=== PATIENT | female | born 1955 | race Caucasian/White ===

== ENCOUNTER → 2017-02-11 | Outpatient (CLI) | payer MEDICAID | LOC: RAD 14:57 | PROVIDERS: ATTEND Internal Medicine Geriatric Medicine | DX: R91.8 Other nonspecific abnormal finding of lung field (principal) | CPT/HCPCS: 71250 ==

== ENCOUNTER → 2017-03-17 | Outpatient (CLI) | payer MEDICAID ==
[2017-03-17 13:01] LABS: ABSOLUTE EOSINOPHILS # (AUTO) 0.1 10^3/uL (0.0-0.6); ABSOLUTE LYMPHOCYTES (AUTO) 1.8 10^3/uL (0.5-4.7); ABSOLUTE MONOCYTES (AUTO) 0.6 10^3/uL (0.1-1.4); ABSOLUTE NEUT (AUTO) 3.4 10^3/uL (1.7-8.2); BASOPHILS % (AUTO) 0.6 % (0-2); EOSINOPHILS % (AUTO) 1.6 % (0-6); HEMATOCRIT 36.2 % (36.0-47.0); HEMOGLOBIN 12.2 g/dL (12.0-15.5); HGB HCT DIFFERENCE 0.4; LYMPHOCYTES % (AUTO) 30.6 % (13-45); MEAN CORPUSCULAR HEMOGLOBIN 33.4 pg (27.0-33.4); MEAN CORPUSCULAR HGB CONC 33.8 g/dL (32.0-36.0); MEAN CORPUSCULAR VOLUME 99 fl (80-97); RED BLOOD COUNT 3.66 10^6/uL (3.72-5.28); RED CELL DISTRIBUTION WIDTH 13.3 % (11.5-14.0); SEGMENTED NEUTROPHILS % (AUTO) 57.2 % (42-78)
--- NOTE | 2017-03-17 13:05 | RADIOLOGY REPORT (SQ) ---
EXAM DESCRIPTION: CHEST PA/LATERAL COMPLETED DATE/TIME: 03/17/2017 12:45 pm REASON FOR STUDY: PRE OP COMPARISON: None. EXAM PARAMETERS: NUMBER OF VIEWS: two views TECHNIQUE: Digital Frontal and Lateral radiographic views of the chest acquired. RADIATION DOSE: NA LIMITATIONS: none FINDINGS: LUNGS AND PLEURA: No opacities, masses or pneumothorax. No pleural effusion. MEDIASTINUM AND HILAR STRUCTURES: No masses or contour abnormalities. HEART AND VASCULAR STRUCTURES: Heart normal size. No evidence for failure. BONES: No acute findings. HARDWARE: None in the chest. OTHER: No other significant finding. IMPRESSION: NO SIGNIFICANT RADIOGRAPHIC FINDING IN THE CHEST. TECHNICAL DOCUMENTATION: JOB ID: [id number] [employer]- All Rights Reserved
[2017-03-17 13:27] LABS: BLOOD UREA NITROGEN 11 mg/dL (7-20); CALCIUM 8.9 mg/dL (8.4-10.2); CREATININE RESULT 0.62 mg/dL (0.52-1.25); GLUCOSE 85 mg/dL (75-110)
[2017-03-17 13:28] LABS: ANION GAP 9 (5-19); CARBON DIOXIDE 24 mmol/L (22-30); CHLORIDE 94 mmol/L (98-107); POTASSIUM 4.8 mmol/L (3.6-5.0)
--- NOTE | 2017-03-18 11:03 | EKG REPORT ---
SEVERITY:- NORMAL ECG - SINUS RHYTHM : Confirmed by: Sophia Gonzalez MD 18-Mar-2017 11:02:41
[2017-03-18 15:42] LABS: APPEARANCE,URINE SLIGHTLY-CLOUDY; BILIRUBIN,URINE NEGATIVE (NEGATIVE); GLUCOSE, URINE NEGATIVE (NEGATIVE); KETONES,URINE NEGATIVE (NEGATIVE); LEUKOCYTE ESTERASE,URINE TRACE (NEGATIVE); NITRITE,URINE POSITIVE (NEGATIVE); PROTEIN,URINE NEGATIVE (NEGATIVE); URINE SPECIFIC GRAVITY 1.009
== END ==
LOC: OD 11:40
PROVIDERS: ATTEND Orthopaedic Surgery
DX: Z01.818 Encounter for other preprocedural examination (principal)
CPT/HCPCS: 36415; 71020; 80048; 81001; 85025; 93005; 93010

== ENCOUNTER 2017-04-18 06:19 | Day surgery (SDC) | payer MEDICAID ==
[2017-04-07 12:33] LABS: HEMATOCRIT 38.3 % (36.0-47.0); HEMOGLOBIN 12.9 g/dL (12.0-15.5); HGB HCT DIFFERENCE 0.4; MEAN CORPUSCULAR HEMOGLOBIN 33.3 pg (27.0-33.4); MEAN CORPUSCULAR HGB CONC 33.8 g/dL (32.0-36.0); MEAN CORPUSCULAR VOLUME 99 fl (80-97); RED BLOOD COUNT 3.89 10^6/uL (3.72-5.28); RED CELL DISTRIBUTION WIDTH 13.4 % (11.5-14.0); WHITE BLOOD COUNT 8.4 10^3/uL (4.0-10.5)
[2017-04-07 12:43] LABS: APPEARANCE,URINE SLIGHTLY-CLOUDY; BILIRUBIN,URINE NEGATIVE (NEGATIVE); GLUCOSE, URINE NEGATIVE (NEGATIVE); KETONES,URINE TRACE mg/dL (NEGATIVE); LEUKOCYTE ESTERASE,URINE TRACE (NEGATIVE); NITRITE,URINE NEGATIVE (NEGATIVE); PROTEIN,URINE NEGATIVE (NEGATIVE); URINE SPECIFIC GRAVITY 1.008; UROBILINOGEN,URINE NEGATIVE mg/dL (<2.0)
[2017-04-07 12:56] LABS: ANION GAP 11 (5-19); BLOOD UREA NITROGEN 11 mg/dL (7-20); CALCIUM 8.5 mg/dL (8.4-10.2); CARBON DIOXIDE 22 mmol/L (22-30); CHLORIDE 97 mmol/L (98-107); CREATININE RESULT 0.61 mg/dL (0.52-1.25); GLUCOSE 77 mg/dL (75-110); POTASSIUM 3.9 mmol/L (3.6-5.0); SODIUM 129.9 mmol/L (137-145)
[2017-04-15 15:08] VITALS: BP 108/57
[~2017-04-18 06:19] MED LIST: BUPIVACAINE INJ/PF LIPOSOME/PF 266 MG/20 ML SDV IJ PRN; CLINDAMYCIN 600 MG/D5W RTU 600 MG/50 ML RTUPB IV PRN; IBUPROFEN 800 MG in NORMAL SALINE 250 ML IV PRN; IBUPROFEN 800 MG/NS 250 ML IV PRN; LACTATED RINGERS 1000 ML IV PRN; LANSOPRAZOLE 15 MG TAB.RAP.DR PO PRN; LIDOCAINE 0.5% INJ-PF (5 MG/ML) 50 ML SDV SUBCUT PRN; OXYCODONE HCL SR 10 MG TABLET PO PRN; SCOPOLAMINE HYDROBROMIDE 1.5 MG PATCH.TD72 TOP PRN; VANCOMYCIN HCL 1,000 MG in DEXTROSE 5%-WATER 250 ML IV PRN
[2017-04-18] MEDS ORDERED: PROPOFOL INJ 200 MG/20 ML VIAL IV ONE (07:02)
[2017-04-18] MEDS ORDERED: MIDAZOLAM 2 MG/2 ML INJ ONE (07:02)
[2017-04-18] MEDS ORDERED: TRANEXAMIC ACID INJ/PF 1,000 MG/10 ML SDV IV ONE (07:02)
[2017-04-18] MEDS ORDERED: FENTANYL CITRATE INJ/PF 100 MCG/2 ML AMPUL ONE (07:02)
[2017-04-18] MEDS ORDERED: DEXAMETHASONE SOD PHOSPHATE INJ 4 MG/1 ML VIAL ONE (07:03)
[2017-04-18] MEDS ORDERED: ONDANSETRON HCL INJ/PF 4 MG/2 ML SDV ONE (07:03)
[2017-04-18] MEDS ORDERED: VANCOMYCIN HCL INJ 1000 MG VIAL ONE (07:29)
[2017-04-18] MEDS ORDERED: THROMBIN (BOVINE) TOPICAL 20000 UNIT VIAL ONE (07:30)
[2017-04-18] MEDS ORDERED: BUPIVACAINE INJ/PF LIPOSOME/PF 266 MG/20 ML SDV ONE (07:30)
[2017-04-18] MEDS ORDERED: THROMBIN (BOVINE) 5000 UNIT EPITAXIS KIT ONE (07:30)
[2017-04-18] MEDS ORDERED: ALBUTEROL SULFATE 0.083% NEB 2.5 MG/3 ML AMPUL NEB ONE (07:59)
== END 2017-04-18 07:10 | disposition other institution (70) ==
LOC: UNDOADMIN 06:19 → INOR 06:19 → OROUT 06:19 → UNDODISIN 07:10 → EDSTATUS 11:15
PROVIDERS: ATTEND Orthopaedic Surgery
DX: Z01.818 Encounter for other preprocedural examination (principal); M17.12 Unilateral primary osteoarthritis, left knee
CPT/HCPCS: 36415 ×2; 82962; 84132; 84295; 85027; 80048; 81001; J3490 ×4; J7060; J7050; J3370; C9290; J1741; J1100; J2250; J2405; J2704; J3010

== ENCOUNTER 2017-04-20 11:07 | Observation (INO) | payer MEDICAID ==
[2017-04-20 14:22] LABS: ABSOLUTE LYMPHOCYTES (AUTO) 1.4 10^3/uL (0.5-4.7); ABSOLUTE MONOCYTES (AUTO) 0.4 10^3/uL (0.1-1.4); ABSOLUTE NEUT (AUTO) 3.6 10^3/uL (1.7-8.2); BASOPHILS % (AUTO) 0.5 % (0-2); EOSINOPHILS % (AUTO) 0.6 % (0-6); HEMATOCRIT 36.1 % (36.0-47.0); HEMOGLOBIN 12.3 g/dL (12.0-15.5); HGB HCT DIFFERENCE 0.8; LYMPHOCYTES % (AUTO) 25.8 % (13-45); MEAN CORPUSCULAR HEMOGLOBIN 33.3 pg (27.0-33.4); MEAN CORPUSCULAR VOLUME 98 fl (80-97); MONOCYTES % (AUTO) 7.9 % (3-13); RED BLOOD COUNT 3.68 10^6/uL (3.72-5.28); RED CELL DISTRIBUTION WIDTH 13.1 % (11.5-14.0); SEGMENTED NEUTROPHILS % (AUTO) 65.2 % (42-78); WHITE BLOOD COUNT 5.5 10^3/uL (4.0-10.5)
[2017-04-20] MEDS: SODIUM CHLORIDE 1 GM TABLET PO SCH ×3 (14:27→21:20)
[2017-04-20 14:31] LABS: ALANINE AMINOTRANSFERASE 31 U/L (9-52); ALKALINE PHOSPHATASE 107 U/L (38-126); ANION GAP 8 (5-19); ASPARTATE AMINO TRANSFERASE 16 U/L (14-36); BILIRUBIN,DIRECT 0.7 mg/dL (0.0-0.4); BLOOD UREA NITROGEN 6 mg/dL (7-20); CALCIUM 8.2 mg/dL (8.4-10.2); CARBON DIOXIDE 23 mmol/L (22-30); CHLORIDE 100 mmol/L (98-107); CREATININE RESULT 0.56 mg/dL (0.52-1.25); GLUCOSE 127 mg/dL (75-110); SODIUM 130.9 mmol/L (137-145); TOTAL PROTEIN 5.6 g/dL (6.3-8.2)
[2017-04-20] MEDS ORDERED: ACETAMINOPHEN PO PRN (15:08)
[2017-04-20] MEDS ORDERED: ONDANSETRON 4 MG TAB.RAPDIS PO PRN (15:08)
[2017-04-20] MEDS ORDERED: [UNRECOGNIZED DRUG - OTHER] PO PRN (15:08)
[2017-04-20] MEDS ORDERED: BUTALB PO PRN (15:08)
[2017-04-20] MEDS ORDERED: FUROSEMIDE 40 MG TABLET PO PRN (15:08)
[2017-04-20] MEDS ORDERED: BUTALB/ACETAMINOPHEN/CAFFEINE 1 TAB EACH PO PRN (15:20)
[2017-04-20] MEDS: TRAMADOL HCL 50 MG TABLET PO PRN (15:33)
[2017-04-20 16:11] LABS: APPEARANCE,URINE CLEAR; BILIRUBIN,URINE NEGATIVE (NEGATIVE); GLUCOSE, URINE NEGATIVE (NEGATIVE); KETONES,URINE 20 mg/dL (NEGATIVE); LEUKOCYTE ESTERASE,URINE NEGATIVE (NEGATIVE); NITRITE,URINE NEGATIVE (NEGATIVE); PROTEIN,URINE NEGATIVE (NEGATIVE); URINE SPECIFIC GRAVITY 1.011; UROBILINOGEN,URINE NEGATIVE mg/dL (<2.0)
[2017-04-20 16:32] LABS: URINE CREATININE 51.7 mg/dL (15-278)
[2017-04-20] MEDS: OXYBUTYNIN CHLORIDE 5 MG TABLET PO SCH (17:52)
[2017-04-20] MEDS: FLUTICASONE NASAL SPRAY 50 MCG/SPRY 120 SPRAY/16 GM NASL SCH (17:53)
[2017-04-20] MEDS: FAMOTIDINE 20 MG TABLET PO SCH (17:53)
--- NOTE | 2017-04-20 18:20 | PDOC H&P ---
History of Present Illness Admission Date/PCP: 04/20/17 11:07 [facility] Patient complains of: Low serum sodium, intermittent confusion and memory lapses History of Present Illness: CESAR THOMPSON is a 61 year old female known to my practice who was schedule for left knee arthroplasty that was cancelled due to significant hyponatremia on her operative day 04/18/17. Patient reported recent issue with memory lapses and confusion. She was recently started on Lexapro for mixed anxiety and depression management. She denied nausea, vomiting, or diarrhea. She claimed that she has liberalized salt intake for quite sometime. She take her diuretic, Lasix, about 2-3 times per month on prn bases. Her possible other medications include Carbamazepine and Pantoprazole. In view of her symptoms and reported serum sodium at 122.7 mmol/L on 04/18/17, she was advised admission to observation bed for further evaluation and management. Past Medical History Cardiac Medical History: Denies: Pulmonary Embolism Pulmonary Medical History: Reports: Asthma, Bronchitis, Chronic Obstructive Pulmonary Disease (COPD) - Chronic Obstructive Lung Disease Denies: Pneumonia, Respiratory Failure, Sleep Apnea, Tuberculosis Endocrine Medical History: Denies: Hyperthyroidism, Hypothyroidism Renal/ Medical History: Denies: End Stage Renal Disease Malignancy Medical History: Denies: Breast Cancer, Cervical Cancer, Leukemia, Lung Cancer, Ovarian Cancer GI Medical History: Reports: Gastroesophageal Reflux Disease Musculoskeltal Medical History: Reports: Arthritis, Fibromyalgia Psychiatric Medical History: Reports: Bipolar Disorder, Depression Denies: Post Traumatic Stress Disorder Hematology: Reports: Anemia - Pernicious Anemia Denies: Hemophilia, Sickle Cell Disease Infectious Medical History: Denies: HIV Past Surgical History Past Surgical History: Reports: Cholecystectomy, Gastric Bypass Surgery, Herniorrhaphy - with mesh, Hysterectomy, Tonsillectomy - T&A Denies: Amputation, Appendectomy, Section, Coronary Artery Bypass Graft, Mastectomy, Pacemaker, Tubal Ligation Social History Smoking Status: Current Every Day Smoker Cigarettes Packs Per Day: 1 Hx Recreational Drug Use: No Hx Prescription Drug Abuse: No Family History Parental Family History Reviewed: Yes Children Family History Reviewed: Yes Sibling(s) Family History Reviewed.: Yes Medication/Allergy Home Medications: Baclofen [Baclofen 10 mg Tablet] 10 mg PO Q8 04/20/17 Butalb/Acetaminophen/Caffeine [Xuvjdmwl-Uegaijrbhrype-Jdmq Cp] 1 cap PO Q4HP PRN 04/20/17 Carbamazepine [Tegretol 200 mg Tablet] 200 mg PO QAM 04/20/17 Carbamazepine [Tegretol 200 mg Tablet] 800 mg PO QHS 04/20/17 Clonazepam [Klonopin 1 mg Tablet] 0.5 mg PO Q8 04/20/17 Escitalopram Oxalate [Lexapro] 40 mg PO DAILY 04/20/17 Fluticasone Propionate [Flonase Nasal [place] 50 Mcg/[place] 16 gm] 1 spray NASL BID 04/20/17 Furosemide [Lasix] 40 mg PO DAILYP PRN 04/20/17 Mometasone Furoate [Asmanex] 2 puff IH DAILY 04/20/17 Montelukast Sodium [Singulair 10 mg Tablet] 10 mg PO DAILY 04/20/17 Ondansetron [Zofran Odt 4 mg Tablet] 4 mg PO TIDP PRN 04/20/17 Oxybutynin Chloride [Ditropan 5 mg Tablet] 5 mg PO TID 04/20/17 Pantoprazole Sodium [Protonix] 40 mg PO DAILY 04/20/17 Pregabalin [Lyrica 50 mg Capsule] 50 mg PO Q8 04/20/17 Tramadol HCl [Ultram 50 mg Tablet] 100 mg PO Q8HP PRN 04/20/17 Trazodone HCl [Desyrel 50 mg Tablet] 100 mg PO QHS 04/20/17 Allergies/Adverse Reactions: clarithromycin Allergy (Verified 04/06/17 16:29) Hives clopidogrel Allergy (Verified 04/06/17 16:29) Hives duloxetine Allergy (Verified 04/06/17 16:29) Hives morphine Allergy (Verified 04/06/17 16:29) Hives Penicillins Allergy (Verified 04/06/17 16:29) Hives procaine Allergy (Verified 04/06/17 16:29) Edema, Hives Rbdhohh-Jjn-Ffh Reductase Inhibitor Allergy (Verified 04/06/17 16:29) Hives Sulfa (Sulfonamide Antibiotics) Allergy (Verified 04/06/17 16:29) Hives Review of Systems Constitutional: ABSENT: chills, fever(s), headache(s), weight gain, weight loss Eyes: PRESENT: visual disturbances Ears: ABSENT: hearing changes Nose, Mouth, and Throat: ABSENT: as per HPI, headache(s), mouth pain, sore throat, vertigo, other Cardiovascular: ABSENT: chest pain, dyspnea on exertion, edema, orthropnea, palpitations Respiratory: ABSENT: cough, hemoptysis Gastrointestinal: ABSENT: abdominal pain, constipation, diarrhea, hematemesis, hematochezia, nausea, vomiting Genitourinary: ABSENT: dysuria, hematuria Musculoskeletal: PRESENT: deformity - related to joint involvement with arthritis. Integumentary: ABSENT: rash, wounds Neurological: ABSENT: abnormal gait, abnormal speech, confusion, dizziness, focal weakness, syncope Psychiatric: ABSENT: anxiety, depression, homidical ideation, suicidal ideation Endocrine: ABSENT: cold intolerance, heat intolerance, polydipsia, polyuria Hematologic/Lymphatic: ABSENT: easy bleeding, easy bruising, lymphadenopathy Allergic/Immunologic: PRESENT: seasonal rhinorrhea Physical Exam Vital Signs: Temp Pulse Resp BP Pulse Ox 98.0 F 101 H 16 114/68 95 04/20/17 15:52 04/20/17 15:52 04/20/17 15:52 04/20/17 15:52 04/20/17 15:52 Intake & Output 04/19/17 04/20/17 04/21/17 06:59 06:59 06:59 Weight 76.204 kg General appearance: PRESENT: no acute distress, well-developed, well-nourished Head exam: PRESENT: atraumatic, normocephalic Eye exam: PRESENT: conjunctiva pink, EOMI, PERRLA. ABSENT: scleral icterus Ear exam: PRESENT: normal external ear exam Mouth exam: PRESENT: moist, tongue midline Throat exam: ABSENT: post pharyngeal erythema, tonsillar erythema, tonsillar exudate, tonsillogmegaly, other Neck exam: PRESENT: full ROM. ABSENT: carotid bruit, JVD, lymphadenopathy, thyromegaly Respiratory exam: PRESENT: clear to auscultation claude Cardiovascular exam: PRESENT: RRR. ABSENT: diastolic murmur, rubs, systolic murmur GI/Abdominal exam: PRESENT: normal bowel sounds, soft. ABSENT: distended, guarding, mass, organolmegaly, rebound, tenderness Extremities exam: ABSENT: pedal edema Musculoskeletal exam: PRESENT: deformity - related to multiple joint involvement with arthritis Neurological exam: PRESENT: alert, awake, oriented to person, oriented to place , oriented to time, oriented to situation, CN II-XII grossly intact. ABSENT: motor sensory deficit Psychiatric exam: PRESENT: appropriate affect, normal mood. ABSENT: homicidal ideation, suicidal ideation Skin exam: PRESENT: dry, intact, warm. ABSENT: cyanosis, rash Results Laboratory Results: 04/20/17 14:00 04/20/17 14:00 04/20/17 04/20/17 04/20/17 14:00 14:00 14:00 WBC 5.5 RBC 3.68 L Hgb 12.3 Hct 36.1 MCV 98 H MCH 33.3 MCHC 34.0 RDW 13.1 Plt Count 308 Seg Neutrophils % 65.2 Lymphocytes % 25.8 Monocytes % 7.9 Eosinophils % 0.6 Basophils % 0.5 Absolute Neutrophils 3.6 Absolute Lymphocytes 1.4 Absolute Monocytes 0.4 Absolute Eosinophils 0.0 Absolute Basophils 0.0 Sodium 130.9 L Potassium 4.0 Chloride 100 Carbon Dioxide 23 Anion Gap 8 BUN 6 L Creatinine 0.56 Cancelled Est GFR ( Amer) > 60 Cancelled Est GFR (Non-Af Amer) > 60 Cancelled Glucose 127 H Calcium 8.2 L Total Bilirubin 1.0 AST 16 ALT 31 Alkaline Phosphatase 107 Total Protein 5.6 L Albumin 3.0 L Urine Color Urine Appearance Urine pH Ur Specific [place] Urine Protein Urine Glucose (UA) Urine Ketones Urine Blood Urine Nitrite Ur Leukocyte Esterase Urine WBC (Auto) Urine RBC (Auto) 04/20/17 15:37 WBC RBC Hgb Hct MCV MCH MCHC RDW Plt Count Seg Neutrophils % Lymphocytes % Monocytes % Eosinophils % Basophils % Absolute Neutrophils Absolute Lymphocytes Absolute Monocytes Absolute Eosinophils Absolute Basophils Sodium Potassium Chloride Carbon Dioxide Anion Gap BUN Creatinine Est GFR ( Amer) Est GFR (Non-Af Amer) Glucose Calcium Total Bilirubin AST ALT Alkaline Phosphatase Total Protein Albumin Urine Color YELLOW Urine Appearance CLEAR Urine pH 6.0 Ur Specific [place] 1.011 Urine Protein NEGATIVE Urine Glucose (UA) NEGATIVE Urine Ketones 20 H Urine Blood NEGATIVE Urine Nitrite NEGATIVE Ur Leukocyte Esterase NEGATIVE Urine WBC (Auto) 1 Urine RBC (Auto) 1 Assessment & Plan - Diagnosis (1) Hyponatremia with normal extracellular fluid volume Is this a current diagnosis for this admission?: YesPlan: See admitting physician orders. (2) Left knee pain Qualifiers: Chronicity: chronic Qualified Code(s): M25.562 - Pain in left knee; G89.29 - Other chronic pain Is this a current diagnosis for this admission?: YesPlan: See admitting physician orders. (4) Mixed anxiety and depressive disorder Is this a current diagnosis for this admission?: YesPlan: See admitting physician orders. (5) OAB (overactive bladder) Is this a current diagnosis for this admission?: YesPlan: See admitting physician orders. (6) Bipolar disorder Qualifiers: Active/Remission status: remission status unspecified Qualified Code (s): F31.9 - Bipolar disorder, unspecified Is this a current diagnosis for this admission?: YesPlan: See admitting physician orders. (7) Fibromyalgia Is this a current diagnosis for this admission?: YesPlan: See admitting physician orders. - Time Time Spent: Greater than 70 Minutes Medications reviewed and adjusted accordingly: Yes Anticipated discharge: Home Within: within 48 hours - Inpatient Certification Post Hospital Care: D/C Warehouse Operations Manager Documentation - Plan Summary Plan Summary: See admitting physician orders.
[2017-04-20] MEDS: PREGABALIN 50 MG CAPSULE PO SCH (21:20)
[2017-04-20] MEDS: CLONAZEPAM 1 MG TABLET PO SCH (21:20)
[2017-04-20] MEDS: BACLOFEN 10 MG TABLET PO SCH (21:20)
[2017-04-20] MEDS: FUROSEMIDE INJ/PF 20 MG/2 ML SDV IV SCH (21:21)
[2017-04-20] MEDS ORDERED: CARBAMAZEPINE 200 MG TABLET PO SCH (22:00)
[2017-04-20] MEDS ORDERED: TRAZODONE HCL 50 MG TABLET PO SCH (22:00)
[2017-04-21] MEDS: SODIUM CHLORIDE 1 GM TABLET PO SCH ×5 (01:18→17:47)
[2017-04-21] MEDS: TRAMADOL HCL 50 MG TABLET PO PRN ×2 (04:45→13:43)
[2017-04-21] MEDS: PREGABALIN 50 MG CAPSULE PO SCH ×2 (05:20→13:43)
[2017-04-21] MEDS: CLONAZEPAM 1 MG TABLET PO SCH ×2 (05:21→13:42)
[2017-04-21] MEDS: BACLOFEN 10 MG TABLET PO SCH ×2 (05:21→13:43)
[2017-04-21] MEDS ORDERED: CARBAMAZEPINE 200 MG TABLET PO SCH (08:00)
[2017-04-21] MEDS: FUROSEMIDE INJ/PF 20 MG/2 ML SDV IV SCH (09:45)
[2017-04-21] MEDS: FAMOTIDINE 20 MG TABLET PO SCH ×2 (09:45→17:47)
[2017-04-21] MEDS: OXYBUTYNIN CHLORIDE 5 MG TABLET PO SCH ×3 (09:45→17:47)
[2017-04-21] MEDS: FLUTICASONE NASAL SPRAY 50 MCG/SPRY 120 SPRAY/16 GM NASL SCH ×2 (09:46→17:48)
[2017-04-21] MEDS ORDERED: MONTELUKAST SODIUM 10 MG TABLET PO SCH (10:00)
[2017-04-21] MEDS ORDERED: ENOXAPARIN SODIUM INJ 40 MG/0.4 ML DISP.SYRIN SUBCUT SCH (10:00)
[2017-04-21] MEDS ORDERED: MOMETASONE FUROATE IH SCH (10:00)
[2017-04-21 12:29] LABS: ANION GAP 6 (5-19); BLOOD UREA NITROGEN 7 mg/dL (7-20); CALCIUM 8.3 mg/dL (8.4-10.2); CARBON DIOXIDE 29 mmol/L (22-30); CHLORIDE 99 mmol/L (98-107); CREATININE RESULT 0.62 mg/dL (0.52-1.25); GLUCOSE 96 mg/dL (75-110); MAGNESIUM 1.9 mg/dL (1.6-2.3); POTASSIUM 3.9 mmol/L (3.6-5.0); SODIUM 134.3 mmol/L (137-145)
--- NOTE | 2017-04-21 18:22 | PDOC DISCHARGE SUMMARY ---
General - Admit/Disc Date/PCP Admission Date/Primary Care Provider: 04/20/17 11:07 [facility] Discharge Date: 04/21/17 - Discharge Diagnosis (1) Hyponatremia with normal extracellular fluid volume Is this a current diagnosis for this admission?: Yes (2) Left knee pain Is this a current diagnosis for this admission?: Yes (4) Mixed anxiety and depressive disorder Is this a current diagnosis for this admission?: Yes (5) OAB (overactive bladder) Is this a current diagnosis for this admission?: Yes (6) Bipolar disorder Is this a current diagnosis for this admission?: Yes (7) Fibromyalgia Is this a current diagnosis for this admission?: Yes - Additional Information Discharge Diet: Regular Discharge Activity: Activity As Tolerated Home Medications: Baclofen [Baclofen 10 mg Tablet] 10 mg PO Q8 04/20/17 Butalb/Acetaminophen/Caffeine [Ljbebkxi-Jdtavadynmkiq-Lkzk Cp] 1 cap PO Q4HP PRN 04/20/17 Carbamazepine [Tegretol 200 mg Tablet] 200 mg PO QAM 04/20/17 Carbamazepine [Tegretol 200 mg Tablet] 800 mg PO QHS 04/20/17 Clonazepam [Klonopin 1 mg Tablet] 0.5 mg PO Q8 04/20/17 Fluticasone Propionate [Flonase Nasal [place] 50 Mcg/[place] 16 gm] 1 spray NASL BID 04/20/17 Furosemide [Lasix] 40 mg PO DAILYP PRN 04/20/17 Mometasone Furoate [Asmanex] 2 puff IH DAILY 04/20/17 Montelukast Sodium [Singulair 10 mg Tablet] 10 mg PO DAILY 04/20/17 Ondansetron [Zofran Odt 4 mg Tablet] 4 mg PO TIDP PRN 04/20/17 Oxybutynin Chloride [Ditropan 5 mg Tablet] 5 mg PO TID 04/20/17 Pregabalin [Lyrica 50 mg Capsule] 50 mg PO Q8 04/20/17 Tramadol HCl [Ultram 50 mg Tablet] 100 mg PO Q8HP PRN 04/20/17 Trazodone HCl [Desyrel 50 mg Tablet] 100 mg PO QHS 04/20/17 Famotidine [Pepcid 20 mg Tablet] 20 mg PO BID #60 tablet 04/21/17 History of Present Illness History of Present Illness: CESAR THOMPSON is a 61 year old female known to my practice who was schedule for left knee arthroplasty that was cancelled due to significant hyponatremia on her operative day 04/18/17. Patient reported recent issue with memory lapses and confusion. She was recently started on Lexapro for mixed anxiety and depression management. She denied nausea, vomiting, or diarrhea. She claimed that she has liberalized salt intake for quite sometime. She take her diuretic, Lasix, about 2-3 times per month on prn bases. Her possible other medications include Carbamazepine and Pantoprazole. In view of her symptoms and reported serum sodium at 122.7 mmol/L on 04/18/17, she was advised admission to observation bed for further evaluation and management. Hospital Course Hospital Course: Patient initail serum sodium level was 130mmol/L. She was treated as a case of SIADH. Her evaluation did revealed low serum osmolality at 270 mOsm/Kg with normal urine osmolality at 346 mOsm/kg and urine sodium of 68 mmol/L (normal). Her repeat serum sodium did improved to 134 mmol/L prior to discharge. Her symptoms with regard to confusion and short term memory did improved. . Her hyponatremia is most likely due to her medications including Carbamazepine, Lexapro and Pantoprazole. Patient was instructed to hold Lexapro and Pantoprazole until further discussion with her mental health provider at [facility]. I spoke with Dr Fox orthopedic surgeon and arrangement will be made for her left knee total replacement surgery subsequently. She will follow up in the office as instructed upon discharge Physical Exam Vital Signs: Temp Pulse Resp BP Pulse Ox 98.3 F 84 20 104/54 L 100 04/21/17 11:40 04/21/17 14:00 04/21/17 11:40 04/21/17 11:40 04/21/17 11:40 Intake & Output 04/20/17 04/21/17 04/22/17 06:59 06:59 06:59 Intake Total 170 160 Output Total 1525 1000 Balance -1355 -840 Weight 80.4 kg General appearance: PRESENT: no acute distress, well-developed, well-nourished Head exam: PRESENT: atraumatic, normocephalic Eye exam: PRESENT: conjunctiva pink, EOMI, PERRLA. ABSENT: scleral icterus Respiratory exam: PRESENT: clear to auscultation claude Cardiovascular exam: PRESENT: RRR. ABSENT: diastolic murmur, rubs, systolic murmur GI/Abdominal exam: PRESENT: normal bowel sounds, soft. ABSENT: distended, guarding, mass, organolmegaly, rebound, tenderness Extremities exam: ABSENT: pedal edema Musculoskeletal exam: PRESENT: deformity - related to arthritis involving multiple joints. Neurological exam: PRESENT: alert, awake, oriented to person, oriented to place , oriented to time, oriented to situation, CN II-XII grossly intact. ABSENT: motor sensory deficit Psychiatric exam: PRESENT: appropriate affect, normal mood. ABSENT: homicidal ideation, suicidal ideation Skin exam: PRESENT: dry, intact, warm. ABSENT: cyanosis, rash Results Laboratory Results: 04/20/17 14:00 04/21/17 12:03 04/20/17 04/20/17 04/21/17 14:00 15:37 12:03 Sodium 134.3 L Potassium 3.9 Chloride 99 Carbon Dioxide 29 Anion Gap 6 BUN 7 Creatinine 0.62 Est GFR ( Amer) > 60 Est GFR (Non-Af Amer) > 60 Glucose 96 Serum Osmolality 270 L Calcium 8.3 L Magnesium 1.9 Urine Osmolality 346 Qualifiers [place] BEING DISCHARGED WITH ANY OF THE FOLLOWING DIAGNOSIS?: No Plan Discharge Plan: D/C home today. Follow up in the office as instructed upon discharge.
[2017-04-21 18:24] VITALS: BP 109/66
== END 2017-04-21 19:18 | disposition home or self-care (01) ==
LOC: 3N 11:07
PROVIDERS: ADMIT Internal Medicine Geriatric Medicine; ATTEND Internal Medicine Geriatric Medicine
DX: E22.2 Syndrome of inappropriate secretion of antidiuretic hormone (principal); G89.29 Other chronic pain; M25.562 Pain in left knee; F41.3 Other mixed anxiety disorders; N32.81 Overactive bladder; F31.9 Bipolar disorder, unspecified; M79.7 Fibromyalgia; Z79.899 Other long term (current) drug therapy; R41.0 Disorientation, unspecified; R41.3 Other amnesia; M13.89 Other specified arthritis, multiple sites; F17.210 Nicotine dependence, cigarettes, uncomplicated; Z90.49 Acquired absence of other specified parts of digestive tract; Z98.84 Bariatric surgery status; Z90.710 Acquired absence of both cervix and uterus
CPT/HCPCS: 36415 ×2; 83735; 83930; 84443; 82570; 83935; 84300; 85025; 80048; 80053; 81001; G0378 ×2; G0379; J3490 ×18; S0119; J1940 ×2; J1650

== ENCOUNTER 2017-05-16 11:44 | Emergency (ER) | payer MEDICAID ==
[2017-05-16] MEDS ORDERED: ASPIRIN 81 MG TABLET, CHEWABLE PO ONE (12:12)
--- NOTE | 2017-05-16 12:19 | ER Document Report ---
ED Medical Screen (RME) - General Chief Complaint: Chest Pain Stated Complaint: CHEST PAIN Time Seen by Provider: 05/16/17 12:04 Mode of Arrival: Wheelchair Information source: Patient Notes: 61-year-old female presents with complaints of shortness of breath intermittently since Tuesday. Patient denies any fevers or chills admits to chest pain. Patient has a history of pulmonary emboli I have greeted and performed a rapid initial assessment of this patient. A comprehensive ED assessment and evaluation of the patient, analysis of test results and completion of the medical decision making process will be conducted by additional ED providers. PHYSICAL EXAMINATION: GENERAL: Well-appearing, well-nourished and in no acute distress. HEAD: Atraumatic, normocephalic. EYES: Pupils equal round extraocular movements intact, conjunctiva are normal. ENT: Nares patent NECK: Normal range of motion LUNGS: No respiratory distress Musculoskeletal: Normal range of motion NEUROLOGICAL: Normal speech, normal gait. PSYCH: Normal mood, normal affect. SKIN: Pale TRAVEL OUTSIDE OF THE [place] IN LAST 30 DAYS: No - Related Data Allergies/Adverse Reactions: clarithromycin Allergy (Verified 05/16/17 12:03) Hives clopidogrel Allergy (Verified 05/16/17 12:03) Hives duloxetine Allergy (Verified 05/16/17 12:03) Hives morphine Allergy (Verified 05/16/17 12:03) Hives Penicillins Allergy (Verified 05/16/17 12:03) Hives procaine [From Novocain] Allergy (Verified 05/16/17 12:03) Edema/Hives Icriaep-Wui-Whu Reductase Inhibitor Allergy (Verified 05/16/17 12:03) Hives Sulfa (Sulfonamide Antibiotics) Allergy (Verified 05/16/17 12:03) Hives Past Medical History - Past Medical History Cardiac Medical History: Denies: Hx Pulmonary Embolism Pulmonary Medical History: Reports: Hx Asthma, Hx Bronchitis, Hx COPD - Chronic Obstructive Lung Disease Denies: Hx Pneumonia, Hx Respiratory Failure, Hx Sleep Apnea, Hx Tuberculosis Neurological Medical History: Denies: Hx Cerebrovascular Accident, Hx Seizures Endocrine Medical History: Denies: Hx Graves' Disease, Hx Hyperthyroidism, Hx Hypothyroidism Renal/ Medical History: Denies: Hx End Stage Renal Disease, Hx Kidney Stones, Hx Ovarian Cysts, Hx Peritoneal Dialysis, Hx Pelvic Inflammatory Disease Malignancy Medical History: Denies: Hx Breast Cancer, Hx Cervical Cancer, Hx Leukemia, Hx Lung Cancer, Hx Ovarian Cancer GI Medical History: Reports: Hx Gastroesophageal Reflux Disease. Denies: Hx Crohn's Disease, Hx Hiatal Hernia, Hx Irritable Bowel, Hx Liver Failure, Hx Ulcer Musculoskeltal Medical History: Reports Hx Arthritis, Reports Hx Fibromyalgia, Denies Hx Multiple Sclerosis, Denies Hx Muscular Dystrophy Psychiatric Medical History: Reports: Hx Bipolar Disorder, Hx Depression Denies: Hx Dementia, Hx Post Traumatic Stress Disorder, Hx Schizophrenia Traumatic Medical History: Denies: Hx Fractures Infectious Medical History: Denies: Hx HIV Past Surgical History: Reports: Hx Bowel Surgery - adhesions, small bowel obstruction, Hx Cholecystectomy, Hx Gastric Bypass Surgery, Hx Herniorrhaphy - with mesh, Hx Hysterectomy, Hx Tonsillectomy - T&A. Denies: Hx Appendectomy, Hx Section, Hx Colostomy, Hx Coronary Artery Bypass Graft, Hx Mastectomy, Hx Pacemaker, Hx Tubal Ligation Physical Exam - Vital signs Vitals: Temp Pulse Resp BP Pulse Ox 98.2 F 99 18 101/65 100 05/16/17 12:03 05/16/17 12:03 05/16/17 12:03 05/16/17 12:03 05/16/17 12:03 Course - Vital Signs Vital signs: Temp Pulse Resp BP Pulse Ox 98.2 F 99 18 101/65 100 05/16/17 12:03 05/16/17 12:03 05/16/17 12:03 05/16/17 12:03 05/16/17 12:03
[2017-05-16] MEDS ORDERED: CLONAZEPAM 1 MG TABLET PO ONE (12:59)
[2017-05-16 13:41] LABS: HEMATOCRIT 41.1 % (36.0-47.0); HEMOGLOBIN 14.2 g/dL (12.0-15.5); HGB HCT DIFFERENCE 1.5; MEAN CORPUSCULAR HEMOGLOBIN 33.9 pg (27.0-33.4); MEAN CORPUSCULAR HGB CONC 34.6 g/dL (32.0-36.0); MEAN CORPUSCULAR VOLUME 98 fl (80-97); RED CELL DISTRIBUTION WIDTH 13.9 % (11.5-14.0); WHITE BLOOD COUNT 7.2 10^3/uL (4.0-10.5)
--- NOTE | 2017-05-16 14:11 | RADIOLOGY REPORT (SQ) ---
EXAM DESCRIPTION: CTA CHEST COMPLETED DATE/TIME: 05/16/2017 1:52 pm REASON FOR STUDY: hx pe COMPARISON: 02/11/[address] chest TECHNIQUE: CT scan of the chest performed using helical scanning technique with dynamic intravenous contrast injection. Images reviewed with lung, soft tissue and bone windows. Reconstructed coronal and sagittal MPR images reviewed. Additional 3 dimensional post-processing performed to develop Maximal Intensity Projection images ([place] P). All images stored on PACS. All CT scanners at this facility use dose modulation, iterative reconstruction, and/or weight based d osing when appropriate to reduce radiation dose to as low as reasonably achievable (ALARA). [facility]: Dose Right [facility]: CareDose [facility]: Dose Right [facility]: Teradose 4D [facility]: [employer] CONTRAST TYPE AND DOSE: contrast/concentration: Isovue 370.00 mg/ml; Total Contrast Delivered: 68.0 ml; Total Saline Delivered: 83.3 ml RENAL FUNCTION: Creatinine 0.6 BUN 7 RADIATION DOSE: Up-to-date CT equipment and radiation dose reduction techniques were employed. CTDIv ol: 13.2 - 14.3 mGy. DLP: 514 mGy-cm. . LIMITATIONS: None. FINDINGS: LUNGS AND PLEURA: No masses, infiltrates, pneumothorax. No pleural effusions, calcificati ons. AORTA AND GREAT VESSELS: No aneurysm or dissection. HEART: No pericardial effusion. PULMONARY ARTERIES: No emboli visualized in the main pulmonary arteries or the segmental branches. HILAR AND MEDIASTINAL STRUCTURES: No identified masses or abnormal nodes. HARDWARE: None in the chest. UPPER ABDOMEN: No significant findings. Limited exam. THYROID AND OTHER SOFT TISSUES: No masses. No adenopathy. BONES: No acute or significant finding. 3D MIPS: Confirm above findings. OTHER: No other significant finding. IMPRESSION: NORMAL CTA OF THE CHEST. NO PULMONARY EMBOLI. TECHNICAL DOCUMENTATION: JOB ID: [id number] Quality ID # [id number]: Final reports with documentation of one or more dose reduction techniques (e.g., Au tomated exposure control, adjustment of the mA and/or kV according to patient size, use of iterative reconstruction technique) 2010 [employer]- All Rights Reserved
[2017-05-16 14:16] LABS: BASOPHILS % (MANUAL) 0 % (0-2); EOSINOPHILS % (MANUAL) 1 % (0-6); LYMPHOCYTES % (MANUAL) 26 % (13-45); TOTAL CELLS COUNTED 100
[2017-05-16 14:17] LABS: BURR CELLS SLIGHT; OVALOCYTES 1+; POIKILOCYTOSIS 1+
[2017-05-16] MEDS ORDERED: IPRATROPIUM/ALBUTEROL 0.5-2.5 MG/3 ML AMPUL NEB ONE (14:33)
[2017-05-16 15:47] LABS: VENOUS BLOOD BASE EXCESS -6.5 mmol/L; VENOUS BLOOD HCO3 19.1 mmol/L (20-32); VENOUS BLOOD PCO2 38.2 mmHg (35-63); VENOUS BLOOD PH 7.32 (7.30-7.42)
[2017-05-16 16:07] LABS: ALANINE AMINOTRANSFERASE 46 U/L (9-52); ALBUMIN 3.5 g/dL (3.5-5.0); ALKALINE PHOSPHATASE 128 U/L (38-126); ANION GAP 18 (5-19); ASPARTATE AMINO TRANSFERASE 48 U/L (14-36); BILIRUBIN,DIRECT 0.9 mg/dL (0.0-0.4); BILIRUBIN,TOTAL 1.4 mg/dL (0.2-1.3); BLOOD UREA NITROGEN 9 mg/dL (7-20); CALCIUM 8.5 mg/dL (8.4-10.2); CARBON DIOXIDE 17 mmol/L (22-30); CHLORIDE 96 mmol/L (98-107); CREATINE KINASE 55 U/L (30-135); CREATININE RESULT 0.75 mg/dL (0.52-1.25); GLUCOSE 98 mg/dL (75-110); SODIUM 130.9 mmol/L (137-145); TOTAL PROTEIN 6.4 g/dL (6.3-8.2)
[2017-05-16 16:16] LABS: CREATINE KINASE MB 0.99 ng/mL (<4.55)
--- NOTE | 2017-05-16 16:42 | ER Document Report ---
ED General - General Chief Complaint: Chest Pain Stated Complaint: CHEST PAIN Time Seen by Provider: 05/16/17 12:04 Mode of Arrival: Wheelchair Notes: Patient is a 7-year-old female presents emergency department complaining of shortness of breath since with intermittent left chest wall pain that is tender to touch. Patient states she has a history of COPD and has been taking albuterol inhaler with minimal improvement in her symptoms. She also admits to lethargy. Patient does have a history of gastric bypass therefore has a history of chronic hyponatremia and intermittent hypokalemia. Patient also admits to history of PE from complications of a knee replacement done in 2009. Otherwise patient denies any recent travel, surgery. Patient is a tobacco user. Primary care is Dr. Agosto TRAVEL OUTSIDE OF THE [place] IN LAST 30 DAYS: No - Related Data Allergies/Adverse Reactions: clarithromycin Allergy (Verified 05/16/17 12:03) Hives clopidogrel Allergy (Verified 05/16/17 12:03) Hives duloxetine Allergy (Verified 05/16/17 12:03) Hives morphine Allergy (Verified 05/16/17 12:03) Hives Penicillins Allergy (Verified 05/16/17 12:03) Hives procaine [From Novocain] Allergy (Verified 05/16/17 12:03) Edema/Hives Sdfyfrq-Vev-Pbv Reductase Inhibitor Allergy (Verified 05/16/17 12:03) Hives Sulfa (Sulfonamide Antibiotics) Allergy (Verified 05/16/17 12:03) Hives Past Medical History - General Information source: Patient - Social History Smoking Status: Current Every Day Smoker Chew tobacco use (# tins/day): No Frequency of alcohol use: None Drug Abuse: None Family History: Reviewed & Not Pertinent - Past Medical History Cardiac Medical History: Denies: Hx Pulmonary Embolism Pulmonary Medical History: Reports: Hx Asthma, Hx Bronchitis, Hx COPD - Chronic Obstructive Lung Disease Denies: Hx Pneumonia, Hx Respiratory Failure, Hx Sleep Apnea, Hx Tuberculosis Neurological Medical History: Denies: Hx Cerebrovascular Accident, Hx Seizures Endocrine Medical History: Denies: Hx Graves' Disease, Hx Hyperthyroidism, Hx Hypothyroidism Renal/ Medical History: Denies: Hx End Stage Renal Disease, Hx Kidney Stones, Hx Ovarian Cysts, Hx Peritoneal Dialysis, Hx Pelvic Inflammatory Disease Malignancy Medical History: Denies: Hx Breast Cancer, Hx Cervical Cancer, Hx Leukemia, Hx Lung Cancer, Hx Ovarian Cancer GI Medical History: Reports: Hx Gastroesophageal Reflux Disease. Denies: Hx Crohn's Disease, Hx Hiatal Hernia, Hx Irritable Bowel, Hx Liver Failure, Hx Ulcer Musculoskeltal Medical History: Reports Hx Arthritis, Reports Hx Fibromyalgia, Denies Hx Multiple Sclerosis, Denies Hx Muscular Dystrophy Psychiatric Medical History: Reports: Hx Bipolar Disorder, Hx Depression Denies: Hx Dementia, Hx Post Traumatic Stress Disorder, Hx Schizophrenia Traumatic Medical History: Denies: Hx Fractures Infectious Medical History: Denies: Hx HIV Past Surgical History: Reports: Hx Bowel Surgery - adhesions, small bowel obstruction, Hx Cholecystectomy, Hx Gastric Bypass Surgery, Hx Herniorrhaphy - with mesh, Hx Hysterectomy, Hx Tonsillectomy - T&A. Denies: Hx Appendectomy, Hx Section, Hx Colostomy, Hx Coronary Artery Bypass Graft, Hx Mastectomy, Hx Pacemaker, Hx Tubal Ligation - Immunizations Hx Pneumococcal Vaccination: 10/17/15 Review of Systems - Review of Systems Constitutional: See HPI Cardiovascular: No symptoms reported Respiratory: See HPI -: Yes All other systems reviewed and negative Physical Exam - Vital signs Vitals: Temp Pulse Resp BP Pulse Ox 98.2 F 99 18 101/65 100 05/16/17 12:03 05/16/17 12:03 05/16/17 12:03 05/16/17 12:03 05/16/17 12:03 - Notes Notes: PHYSICAL EXAM GENERAL: Alert, interacts well. HEAD: Normocephalic, atraumatic. EYES: Pupils equal, round, and reactive to light. Extraocular movements intact. ENT: Oral mucosa moist, tongue midline. NECK: Full range of motion. Supple. Trachea midline. LUNGS: Lungs with diminished air movement noted bilaterally without wheezes, rales, or rhonchi. No respiratory distress. HEART: Regular rate and rhythm. No murmurs, gallops, or rubs. Patient's chest tender to palpation on the left lower aspect of any evidence of crepitus, deformity, bruising. ABDOMEN: Soft, nondistended, nontender. No guarding, rebound, or rigidity.. Bowel sounds present in all 4 quadrants. EXTREMITIES: Moves all 4 extremities spontaneously. No edema, radial and dorsalis pedis pulses 2/4 bilaterally. No cyanosis. NEUROLOGICAL: Alert and oriented x4. Normal speech. PSYCH: Normal affect, normal mood. SKIN: Warm, dry, normal turgor. No rashes or lesions noted. Course - Re-evaluation Re-evalutation: 05/16/17 19:25 Patient is very well in appearance, vitals within normal limits. Patient's presentation consistent with COPD exacerbation. Given that patient is satting in the high 90s without supplemental O2 and has responded well to breathing treatments. Patient will be discharged on p.o. prednisone and to follow-up with Dr. Agosto. Patient also given supplemental potassium instructed to continue taking her potassium at home and to follow-up for recheck with Dr. Agosto. Low clinical suspicion for ACS given clinical history, exam, EKG without ST elevations or depressions, and negative initial troponin. HEART score less than or equal to 3. PE also seems unlikely given clinical history, absence of tachycardia or dyspnea. Well's score of 0. CXR without evidence of pneumothorax or pneumonia. No widened mediastinum. Aortic dissection also seems unlikely given history, symmetric pulses, CXR, and vitals. At this time will discharge with return precautions and follow-up recommendations. Verbal discharge instructions given a the bedside and opportunity for questions given. Medication warnings reviewed. Patient is in agreement with this plan and has verbalized understanding of return precautions and the need for primary care follow-up in the next 24-72 hours. - Vital Signs Vital signs: Temp Pulse Resp BP Pulse Ox 98.1 F 100 16 114/82 92 05/16/17 18:54 05/16/17 18:54 05/16/17 18:54 05/16/17 18:54 05/16/17 18:54 - Laboratory Result Diagrams: 05/16/17 13:14 05/16/17 15:41 Laboratory results interpreted by me: 05/16/17 05/16/17 05/16/17 13:14 15:41 15:41 MCV 98 H MCH 33.9 H Plt Count 554 H VBG HCO3 19.1 L Sodium 130.9 L Potassium 2.8 L* Chloride 96 L Carbon Dioxide 17 L Total Bilirubin 1.4 H Direct Bilirubin 0.9 H AST 48 H Alkaline Phosphatase 128 H - Diagnostic Test Radiology reviewed: Image reviewed, Reports reviewed - EKG Interpretation by Id EKG shows normal: Sinus rhythm Rate: Normal Rhythm: NSR When compared to previous EKG there are: No significant change Discharge - Discharge Clinical Impression: COPD exacerbation, Hyponatremia with normal extracellular fluid volume, Hypokalemia Condition: Good Disposition: HOME, SELF-CARE Instructions: Chest Wall Pain ([facility]), Hypokalemia ([facility]), Hyponatremia ([facility]), Chronic Obstructive Lung Disease ([facility]) Additional Instructions: Please take your home potassium as directed and follow up with Dr. Agosto on Tuesday Prescriptions: Prednisone [Deltasone 20 mg Tablet] 3 tab PO DAILY 5 Days Referrals: OTILIO AGOSTO MD [Primary Care Provider] - 05/18/17
[2017-05-16 16:59] LABS: POTASSIUM 2.8 mmol/L (3.6-5.0)
[2017-05-16] MEDS ORDERED: POTASSIUM CHLORIDE 10 MEQ TABLET.SA PO ONE (17:04)
[2017-05-16] MEDS ORDERED: NORMAL SALINE 500 ML IV ONE (17:04)
[2017-05-16] MEDS ORDERED: METHYLPREDNISOLONE INJ 125 MG/2 ML SDV IV ONE (17:11)
--- NOTE | 2017-05-16 17:52 | EKG REPORT ---
SEVERITY:- NORMAL ECG - SINUS RHYTHM : Confirmed by: Rl Amado 16-May-2017 17:52:14
[2017-05-16 18:56] VITALS: BP 114/82
== END 2017-05-16 18:54 | disposition home or self-care (01) ==
LOC: ER 11:44
DX: J44.1 Chronic obstructive pulmonary disease with (acute) exacerbation (principal); E87.1 Hypo-osmolality and hyponatremia; E87.6 Hypokalemia; R07.9 Chest pain, unspecified; R06.02 Shortness of breath; R07.89 Other chest pain; F17.200 Nicotine dependence, unspecified, uncomplicated
CPT/HCPCS: 93005; 94640; 99285; 96361; 96374; 36415; 82553; 82550; 85025; 80053; 84484; 82803; 83880; 71275; 93010; J3490; J2930; J7040; J7620

== ENCOUNTER 2017-05-21 13:25 | Emergency (ER) | payer MEDICAID ==
[2017-05-21] MEDS ORDERED: NORMAL SALINE 1000 ML 1,000 ML IV ONE ×2 (13:32→20:08)
--- NOTE | 2017-05-21 13:35 | ER Document Report ---
ED General - General Stated Complaint: ALTERED MENTAL STATUS Time Seen by Provider: 05/21/17 13:31 TRAVEL OUTSIDE OF THE [place] IN LAST 30 DAYS: No - HPI Patient complains to provider of: Altered mental status Notes: 62-year-old female presents from home with altered mental status. Patient remains that she was acting strange this morning on answering questions appropriately pulling on her close. Patient is lengthy history of urinary tract infections. Patient afebrile. Patient not answering questions appropriately but moving all 4 extremities will open eyes spontaneously. Can answer simple yes/no questions but unable to obtain complete review of systems. - Related Data Allergies/Adverse Reactions: clarithromycin Allergy (Verified 05/16/17 12:03) Hives clopidogrel Allergy (Verified 05/16/17 12:03) Hives duloxetine Allergy (Verified 05/16/17 12:03) Hives morphine Allergy (Verified 05/16/17 12:03) Hives Penicillins Allergy (Verified 05/16/17 12:03) Hives procaine [From Novocain] Allergy (Verified 05/16/17 12:03) Edema/Hives Qdnkxak-Iat-Aaw Reductase Inhibitor Allergy (Verified 05/16/17 12:03) Hives Sulfa (Sulfonamide Antibiotics) Allergy (Verified 05/16/17 12:03) Hives Past Medical History - Social History Smoking Status: Unknown if Ever Smoked Family History: Reviewed & Not Pertinent - Past Medical History Cardiac Medical History: Denies: Hx Pulmonary Embolism Pulmonary Medical History: Reports: Hx Asthma, Hx Bronchitis, Hx COPD - Chronic Obstructive Lung Disease Denies: Hx Pneumonia, Hx Respiratory Failure, Hx Sleep Apnea, Hx Tuberculosis Neurological Medical History: Denies: Hx Cerebrovascular Accident, Hx Seizures Endocrine Medical History: Denies: Hx Graves' Disease, Hx Hyperthyroidism, Hx Hypothyroidism Renal/ Medical History: Denies: Hx End Stage Renal Disease, Hx Kidney Stones, Hx Ovarian Cysts, Hx Peritoneal Dialysis, Hx Pelvic Inflammatory Disease Malignancy Medical History: Denies: Hx Breast Cancer, Hx Cervical Cancer, Hx Leukemia, Hx Lung Cancer, Hx Ovarian Cancer GI Medical History: Reports: Hx Gastroesophageal Reflux Disease. Denies: Hx Crohn's Disease, Hx Hiatal Hernia, Hx Irritable Bowel, Hx Liver Failure, Hx Ulcer Musculoskeltal Medical History: Reports Hx Arthritis, Reports Hx Fibromyalgia, Denies Hx Multiple Sclerosis, Denies Hx Muscular Dystrophy Psychiatric Medical History: Reports: Hx Bipolar Disorder, Hx Depression Denies: Hx Dementia, Hx Post Traumatic Stress Disorder, Hx Schizophrenia Traumatic Medical History: Denies: Hx Fractures Infectious Medical History: Denies: Hx HIV Past Surgical History: Reports: Hx Bowel Surgery - adhesions, small bowel obstruction, Hx Cholecystectomy, Hx Gastric Bypass Surgery, Hx Herniorrhaphy - with mesh, Hx Hysterectomy, Hx Tonsillectomy - T&A. Denies: Hx Appendectomy, Hx Section, Hx Colostomy, Hx Coronary Artery Bypass Graft, Hx Mastectomy, Hx Pacemaker, Hx Tubal Ligation - Immunizations Hx Pneumococcal Vaccination: 10/17/15 Review of Systems - Review of Systems -: Yes ROS unobtainable due to patient's medical condition Physical Exam - Vital signs Vitals: Resp 24 H 05/21/17 13:31 Interpretation: Hypotensive, Hypoxic, Tachypneic, Other - hypothermia - General General appearance: Lethargic In distress: Severe - HEENT Head: Normocephalic, Atraumatic Eyes: Normal Pupils: PERRL - Respiratory Respiratory status: Depressed respirations, Tachypnea Chest status: Nontender Breath sounds: Normal Chest palpation: Normal - Cardiovascular Rhythm: Tachycardia Heart sounds: Normal auscultation Murmur: No - Abdominal Inspection: Normal Distension: No distension Bowel sounds: Normal Tenderness: Nontender Organomegaly: No organomegaly - Back Back: Normal, Nontender - Extremities General upper extremity: Normal inspection, Nontender, Normal color, Normal ROM , Normal temperature General lower extremity: Normal inspection, Nontender, Normal color, Normal ROM , Normal temperature, Normal weight bearing. No: Ritika's sign - Neurological Cognition: Confused Dubberly Coma Scale Eye Opening: To Voice Rashaun Coma Scale Verbal: Confused Rashaun Coma Scale Motor: Localizes to Pain Rashaun Coma Scale Total: 12 - Psychological Associated symptoms: Agitated - Skin Skin Temperature: Cool Skin Moisture: Dry Skin Color: Normal Course - Re-evaluation Re-evalutation: 05/21/17 13:35 Patient presents from home altered mental status. Patient pulling on her IV and her clothing and her Down's. Not acting appropriately not answering questions. Difficult to redirect patient. 05/21/17 15:19 Patient was found to be hypothermic temperature approximately 90F. Blood pressure also taken manually show systolic blood pressure possibly 60. Patient does have history of systolic blood pressure mid 90s per . Patient has multiple IVs established. Patient has been resuscitated with at least 3 L of warm lactated ringer. Patient has difficult IV access to pain. Calderon catheter placed. Patient placed on Meseret hugger as well. Multiple labs drawn physical sticks redraws occur. Patient had a profound leukocytosis and lactic acidosis. Patient transaminitis as well. Patient's kidney function is preserved at this time. - Vital Signs Vital signs: Temp Pulse Resp BP Pulse Ox 27 H 106/41 L 89 L 05/21/17 15:52 05/21/17 15:52 05/21/17 15:11 - Laboratory Result Diagrams: 05/21/17 14:50 05/21/17 13:51 Laboratory results interpreted by me: 05/21/17 05/21/17 05/21/17 13:51 13:51 13:51 WBC RBC Hgb Hct MCV MCH RDW Band Neutrophils % Monocytes % (Manual) Abs Neuts (Manual) Carbonic Acid ABG pH ABG pCO2 ABG pO2 ABG HCO3 ABG Total CO2 ABG O2 Saturation VBG pH VBG pCO2 VBG HCO3 Sodium 135.2 L Carbon Dioxide 6 L* Anion Gap 29 H Est GFR (Non-Af Amer) 53 L Lactic Acid 11.0 H Total Bilirubin 4.6 H Direct Bilirubin 3.4 H AST 1499 H ALT 779 H Alkaline Phosphatase 310 H Creatine Kinase 549 H Total Protein 5.9 L Albumin 3.3 L Urine Ketones Urine Urobilinogen 05/21/17 05/21/17 05/21/17 13:58 14:50 14:50 WBC 17.4 H RBC 3.26 L Hgb 11.1 L Hct 33.9 L MCV 104 H D MCH 33.9 H RDW 15.2 H Band Neutrophils % 10 H Monocytes % (Manual) 1 L Abs Neuts (Manual) 15.0 H Carbonic Acid ABG pH ABG pCO2 ABG pO2 ABG HCO3 ABG Total CO2 ABG O2 Saturation VBG pH 6.95 L* VBG pCO2 20.9 L VBG HCO3 4.4 L Sodium Carbon Dioxide Anion Gap Est GFR (Non-Af Amer) Lactic Acid Total Bilirubin Direct Bilirubin AST ALT Alkaline Phosphatase Creatine Kinase Total Protein Albumin Urine Ketones TRACE H Urine Urobilinogen 2.0 H 05/21/17 15:15 WBC RBC Hgb Hct MCV MCH RDW Band Neutrophils % Monocytes % (Manual) Abs Neuts (Manual) Carbonic Acid 0.45 L ABG pH 7.00 L* ABG pCO2 15.0 L* ABG pO2 77.2 L ABG HCO3 3.6 L ABG Total CO2 4.1 L ABG O2 Saturation 87.9 L VBG pH VBG pCO2 VBG HCO3 Sodium Carbon Dioxide Anion Gap Est GFR (Non-Af Amer) Lactic Acid Total Bilirubin Direct Bilirubin AST ALT Alkaline Phosphatase Creatine Kinase Total Protein Albumin Urine Ketones Urine Urobilinogen - EKG Interpretation by Me Additional EKG results interpreted by me: 05/21/17 15:46 Sinus rhythm 97 bpm, normal VT, normal QTC, normal QRS. No pathologic T-wave inversions no ST elevations or depressions Procedures - Intubation Orotracheal Airway evaluation: Normal anatomy Mallampati Classification: Class 1 Medications: Etomidate, Other - rocronium Intubation method: Orotracheal Blade type: Marisa Blade size: 3 ETT size: 7.5 ETT secured at: Teeth ETT secured at (cm): 23 Breath Sounds after Intubation: Equal End tidal CO2 confirmed: Yes Post Intubation Xray: Yes - appropriate Critical Care Note - Critical Care Note Total time excluding time spent on procedures (mins): 49 Discharge - Discharge Clinical Impression: Lactic acidosis, Severe sepsis Pneumonia Qualifiers: Pneumonia type: due to unspecified organism Laterality: bilateral Lung location : unspecified part of lung Qualified Code(s): J18.9 - Pneumonia, unspecified organism Disposition: TERTIARY Admitting Provider: Dr. Rawls Unit Admitted: ICU
[2017-05-21] MEDS ORDERED: LORAZEPAM INJ 2 MG/1 ML VIAL IV ONE ×2 (13:49→16:04)
[2017-05-21 14:16] LABS: APPEARANCE,URINE SLIGHTLY-CLOUDY; BILIRUBIN,URINE NEGATIVE (NEGATIVE); GLUCOSE, URINE NEGATIVE (NEGATIVE); KETONES,URINE TRACE mg/dL (NEGATIVE); LEUKOCYTE ESTERASE,URINE NEGATIVE (NEGATIVE); NITRITE,URINE NEGATIVE (NEGATIVE); PROTEIN,URINE NEGATIVE (NEGATIVE); URINE SPECIFIC GRAVITY 1.017
[2017-05-21 14:26] LABS: ALANINE AMINOTRANSFERASE 779 U/L (9-52); ALBUMIN 3.3 g/dL (3.5-5.0); ALKALINE PHOSPHATASE 310 U/L (38-126); BILIRUBIN,DIRECT 3.4 mg/dL (0.0-0.4); BILIRUBIN,TOTAL 4.6 mg/dL (0.2-1.3); BLOOD UREA NITROGEN 8 mg/dL (7-20); CHLORIDE 100 mmol/L (98-107); CREATININE RESULT 1.06 mg/dL (0.52-1.25); GLUCOSE 82 mg/dL (75-110); TOTAL PROTEIN 5.9 g/dL (6.3-8.2)
[2017-05-21 14:33] LABS: ALCOHOL < 10 mg/dL (NONE DETECTED)
[2017-05-21] MEDS ORDERED: POTASSI CL 20 MEQ/50 ML RIDER 50 ML IV ONE (14:37)
[2017-05-21] MEDS ORDERED: MAGNESIUM SULFATE/D5W 100 ML IV ONE (14:41)
[2017-05-21 14:43] LABS: POTASSIUM 4.1 mmol/L (3.6-5.0); SODIUM 135.2 mmol/L (137-145)
[2017-05-21 14:44] LABS: ANION GAP 29 (5-19); ASPARTATE AMINO TRANSFERASE 1499 U/L (14-36); CARBON DIOXIDE 6 mmol/L (22-30)
[2017-05-21] MEDS ORDERED: DEXTROSE 5%-WATER 1000 ML 1,000 ML with SODIUM BICARBONATE 150 MEQ IV PRN ×2 (14:51)
[2017-05-21] MEDS ORDERED: VANCOMYCIN HCL INJ 1000 MG VIAL IV ONE (14:52)
[2017-05-21] MEDS ORDERED: LEVOFLOXACIN 750 MG/D5W RTU 150 ML IV ONE (14:52)
[2017-05-21] MEDS ORDERED: CEFEPIME 1 GM/D5W RTU 50 ML IV SCH (15:00)
[2017-05-21 15:08] LABS: VENOUS BLOOD BASE EXCESS -26.3 mmol/L; VENOUS BLOOD HCO3 4.4 mmol/L (20-32); VENOUS BLOOD PCO2 20.9 mmHg (35-63)
[2017-05-21 15:10] LABS: VENOUS BLOOD PH 6.95 (7.30-7.42)
[2017-05-21] MEDS ORDERED: ROCURONIUM BROMIDE INJ 50 MG/5 ML VIAL IV ONE ×2 (15:10→20:14)
[2017-05-21 15:12] LABS: HEMATOCRIT 33.9 % (36.0-47.0); HEMOGLOBIN 11.1 g/dL (12.0-15.5); HGB HCT DIFFERENCE -0.6; MEAN CORPUSCULAR HEMOGLOBIN 33.9 pg (27.0-33.4); MEAN CORPUSCULAR HGB CONC 32.6 g/dL (32.0-36.0); RED BLOOD COUNT 3.26 10^6/uL (3.72-5.28); RED CELL DISTRIBUTION WIDTH 15.2 % (11.5-14.0); WHITE BLOOD COUNT 17.4 10^3/uL (4.0-10.5)
--- NOTE | 2017-05-21 15:14 | RADIOLOGY REPORT (SQ) ---
EXAM DESCRIPTION: CHEST SINGLE VIEW COMPLETED DATE/TIME: 05/21/2017 3:03 pm REASON FOR STUDY: bed 17 sepsis protocol COMPARISON: CT of the chest dated 05/16/2017 and chest x-ray dated 03/17/2017 EXAM PARAMETERS: NUMBER OF VIEWS: One view. TECHNIQUE: Single frontal radiographic view of the chest acquired. RADIATION DOSE: NA LIMITATIONS: None. FINDINGS: LUNGS AND PLEURA: There has been interval development of diffuse airspace consolidation in the right lung. This could represent a pneumonic infiltrate or atelectatic changes. MEDIASTINUM AND HILAR STRUCTURES: No masses. Contour normal. HEART AND VASCULAR STRUCTURES: Heart normal in size. Normal vasculature. BONES: No acute findings. HARDWARE: None in the chest. OTHER: No other significant finding. IMPRESSION: Interval development of diffuse airspace consolidation in the right lung as noted above TECHNICAL DOCUMENTATION: JOB ID: [id number]
[2017-05-21 15:18] LABS: MEAN CORPUSCULAR VOLUME 104 fl (80-97)
[2017-05-21] MEDS ORDERED: CEFEPIME 1 GM/D5W RTU 1 GM/50 ML RTUPB IV ONE (15:30)
[2017-05-21 15:34] LABS: ARTERIAL BLOOD BASE EXCESS -25.7 mmol/L; ARTERIAL BLOOD O2 SATURATION 87.9 % (94-98)
[2017-05-21 15:47] LABS: BAND NEUTROPHILS % (MANUAL) 10 % (3-5); BASOPHILS % (MANUAL) 0 % (0-2); EOSINOPHILS % (MANUAL) 0 % (0-6); LYMPHOCYTES % (MANUAL) 13 % (13-45); TOTAL CELLS COUNTED 100
[2017-05-21 15:49] LABS: TOXIC VACUOLATION PRESENT
[2017-05-21 15:50] LABS: ANISOCYTOSIS SLIGHT; PLATELET CLUMPS PRESENT; TARGET CELLS SLIGHT
[2017-05-21] MEDS ORDERED: SODIUM BICARBONATE 8.4% INJ 50 MEQ/50 ML DISP.SYRIN ONE (15:59)
[2017-05-21 16:03] LABS: ACANTHOCYTES 2+; POIKILOCYTOSIS 2+
[2017-05-21 16:04] LABS: BURR CELLS 1+
--- NOTE | 2017-05-21 16:37 | EKG REPORT ---
SEVERITY:- OTHERWISE NORMAL ECG - SINUS RHYTHM BORDERLINE RIGHT AXIS DEVIATION : Confirmed by: Rl Amado 21-May-2017 16:36:15
[2017-05-21] MEDS ORDERED: ETOMIDATE INJ/PF 20 MG/10 ML SDV IV ONE ×3 (16:43→20:14)
[2017-05-21] MEDS ORDERED: NOREPINEPHRINE BITARTRATE INJ/PF 4 MG/4 ML SDV IV ONE (16:47)
--- NOTE | 2017-05-21 16:48 | RADIOLOGY REPORT (SQ) ---
EXAM DESCRIPTION: CT ABD/PELVIS WITH IV ONLY COMPLETED DATE/TIME: 05/21/2017 4:30 pm REASON FOR STUDY: altered COMPARISON: Chest radiograph 05/21/2017 TECHNIQUE: CT scan of the abdomen and pelvis performed using helical scanning technique with dynamic intravenous contrast injection. No oral contrast. Images reviewed with lung, soft tissue, and bone windows. Reconstructed coronal and sagittal MPR images reviewed. Delayed images for evaluation of the urinary system also acquired. All images stored on PACS. All CT scanners at this facility use dose modulation, iterative reconstruction, and/or weight based d osing when appropriate to reduce radiation dose to as low as reasonably achievable (ALARA). [facility]: Dose Right [facility]: CareDose [facility]: Dose Right [facility]: Teradose 4D [facility]: [email or web address] CONTRAST TYPE AND DOSE: contrast/concentration: Isovue 370.00 mg/ml; Total Contrast Delivered: 95.0 ml; Total Saline Delivered: 71.0 ml RENAL FUNCTION: BUN 8; creatinine 1.06 RADIATION DOSE: Up-to-date CT equipment and radiation dose reduction techniques were employed. CTDIv ol: 10.7 - 15.2 mGy. DLP: 1377 mGy-cm.. LIMITATIONS: None. FINDINGS: LOWER CHEST: Partially imaged diffuse consolidation, predominantly involving the right hem i thorax with subtle left sided lobe and lingular involvement (predominantly peripheral). LIVER: Normal size. No masses. No dilated ducts. SPLEEN: Normal size. No focal lesions. A flash enhancing lesion adjacent to the splenic hilum is fav ored to represent opacification of a splenic artery aneurysm. PANCREAS: No masses. No significant calcifications. No adjacent inflammation or peripancreatic fluid collections. Pancreatic duct not dilated. GALLBLADDER: Surgically absent. ADRENAL GLANDS: No significant masses or asymmetry. RIGHT KIDNEY AND URETER: No solid masses. No significant calcifications. No hydronephrosis or hyd roureter. LEFT KIDNEY AND URETER: No solid masses. No significant calcifications. No hydronephrosis or hydr oureter. AORTA AND VESSELS: No aneurysm. No dissection. Renal arteries, SMA, celiac without stenosis. RETROPERITONEUM: No retroperitoneal adenopathy, hemorrhage or masses. BOWEL AND PERITONEAL CAVITY: Upper abdominal surgical changes poorly characterize, but likely on the basis of gastric bypass. No masses or inflammatory changes. No free fluid or peritoneal masses. APPENDIX: Not visualized. PELVIS: No mass. No free fluid. Calderon bladder catheter in place. ABDOMINAL WALL: No masses. No hernias. BONES: No significant or acute findings. OTHER: No other significant finding. IMPRESSION: 1. Partially imaged multi lobar consolidation, predominantly affecting the right sparkle t horax. In the appropriate clinical setting, this is consistent with a multi lobar pneumonia. 2. No discrete CT findings to suggest acute infectious/ inflammatory abdominal process. TECHNICAL DOCUMENTATION: JOB ID: [id number] Quality ID # [id number]: Final reports with documentation of one or more dose reduction techniques (e.g., Au tomated exposure control, adjustment of the mA and/or kV according to patient size, use of iterative reconstruction technique) 2010 [employer]- All Rights Reserved
[2017-05-21] MEDS ORDERED: MIDAZOLAM 2 MG/2 ML INJ ONE ×2 (16:56→17:10)
--- NOTE | 2017-05-21 17:07 | RADIOLOGY REPORT (SQ) ---
EXAM DESCRIPTION: CHEST SINGLE VIEW COMPLETED DATE/TIME: 05/21/2017 4:34 pm REASON FOR STUDY: sob COMPARISON: Chest radiograph and abdominal CT 05/21/[address] dated 05/16/2017 EXAM PARAMETERS: NUMBER OF VIEWS: One view. TECHNIQUE: Single frontal radiographic view of the chest acquired. RADIATION DOSE: NA LIMITATIONS: None. FINDINGS: LUNGS AND PLEURA: Re- demonstration of diffuse consolidation, predominantly involving the right sparkle thorax and left lower lung. MEDIASTINUM AND HILAR STRUCTURES: No masses. Contour normal. HEART AND VASCULAR STRUCTURES: Heart normal in size. Normal vasculature. BONES: No acute findings. HARDWARE: None in the chest. OTHER: No other significant finding. IMPRESSION: Re- demonstration of multi lobar consolidation; while nonspecific, this is favored to re present multi lobar pneumonia TECHNICAL DOCUMENTATION: JOB ID: [id number]
[2017-05-21] MEDS ORDERED: FENTANYL CITRATE INJ/PF 100 MCG/2 ML AMPUL ONE (17:11)
--- NOTE | 2017-05-21 18:53 | RADIOLOGY REPORT (SQ) ---
EXAM DESCRIPTION: CHEST SINGLE VIEW COMPLETED DATE/TIME: 05/21/2017 5:54 pm REASON FOR STUDY: intubation COMPARISON: 05/21/2017 EXAM PARAMETERS: NUMBER OF VIEWS: One view. TECHNIQUE: Single frontal radiographic view of the chest acquired. RADIATION DOSE: NA LIMITATIONS: None. FINDINGS: LUNGS AND PLEURA: Re- demonstration of diffuse consolidation, predominantly involving the right sparkle thorax and left lower lung. MEDIASTINUM AND HILAR STRUCTURES: No masses. Contour normal. HEART AND VASCULAR STRUCTURES: Heart normal in size. Normal vasculature. BONES: No acute findings. HARDWARE: Interval placement of an endotracheal tube which projects in the midline, and terminates ap proximately 2.5 cm cranial to the michelle. Enteric tube and terminates subdiaphragmatically. OTHER: No other significant finding. IMPRESSION: 1. Interval placement of endotracheal and enteric tubes without evidence of complicatio n. 2. Stable pulmonary exam demonstrating multi focal consolidation. TECHNICAL DOCUMENTATION: JOB ID: [id number]
--- NOTE | 2017-05-21 19:18 | RADIOLOGY REPORT (SQ) ---
EXAM DESCRIPTION: CHEST SINGLE VIEW COMPLETED DATE/TIME: 05/21/2017 7:08 pm REASON FOR STUDY: central line placement COMPARISON: 05/21/2017. EXAM PARAMETERS: NUMBER OF VIEWS: One view. TECHNIQUE: Single frontal radiographic view of the chest acquired. RADIATION DOSE: NA LIMITATIONS: None. FINDINGS: LUNGS AND PLEURA: Stable multifocal airspace disease, right greater than left with probabl e right pleural effusion. MEDIASTINUM AND HILAR STRUCTURES: Stable. HEART AND VASCULAR STRUCTURES: Heart stable in size. Normal vasculature. BONES: No acute findings. HARDWARE: Interval placement of a right IJ venous catheter which to terminates deep within the right atrium. Stable position of endotracheal tube which is approximately 4 cm above the michelle. There is also a nasogastric tube in place which has a curvilinear orientation and terminates below the diaphr agm. OTHER: No other significant finding. IMPRESSION: RIGHT IJ VENOUS CATHETER TERMINATING DEEP WITHIN THE RIGHT ATRIUM. RECOMMEND PULLING BA CK 5 TO 7 CM. UNUSUAL COURSE FOR THE NASOGASTRIC AND UNCERTAIN WHETHER OR NOT IT IS WITHIN THE ESOPHAGUS. CONSIDER REPLACEMENT. STABLE MULTIFOCAL AIRSPACE DISEASE. TECHNICAL DOCUMENTATION: JOB ID: [id number]
[2017-05-21] MEDS ORDERED: FENTANYL CITRATE INJ/PF 100 MCG/2 ML AMPUL IV ONE (20:14)
[2017-05-21] MEDS ORDERED: MIDAZOLAM 2 MG/2 ML INJ IV ONE (20:14)
[2017-05-21] MEDS ORDERED: RINGERS SOLUTION,LACTATED 1,000 ML IV ONE (20:15)
[2017-05-21] MEDS ORDERED: RINGERS SOLUTION,LACTATED 1,000 ML IV PRN (20:15)
[2017-05-21 20:45] LABS: VENOUS BLOOD BASE EXCESS -25.9 mmol/L; VENOUS BLOOD HCO3 7.6 mmol/L (20-32); VENOUS BLOOD PCO2 45.6 mmHg (35-63)
[2017-05-21 20:46] LABS: VENOUS BLOOD PH 6.84 (7.30-7.42)
[2017-05-21 20:49] VITALS: BP 77/63
[2017-05-21 20:55] LABS: HEMATOCRIT 37.6 % (36.0-47.0); HEMOGLOBIN 12.1 g/dL (12.0-15.5); HGB HCT DIFFERENCE -1.3; MEAN CORPUSCULAR HEMOGLOBIN 33.8 pg (27.0-33.4); MEAN CORPUSCULAR HGB CONC 32.3 g/dL (32.0-36.0); MEAN CORPUSCULAR VOLUME 105 fl (80-97); RED BLOOD COUNT 3.58 10^6/uL (3.72-5.28); RED CELL DISTRIBUTION WIDTH 15.6 % (11.5-14.0); WHITE BLOOD COUNT 16.8 10^3/uL (4.0-10.5)
[2017-05-21 21:00] LABS: ALANINE AMINOTRANSFERASE 722 U/L (9-52); ALBUMIN 1.9 g/dL (3.5-5.0); ALKALINE PHOSPHATASE 249 U/L (38-126); BILIRUBIN,TOTAL 3.8 mg/dL (0.2-1.3); BLOOD UREA NITROGEN 8 mg/dL (7-20); CALCIUM 7.4 mg/dL (8.4-10.2); CHLORIDE 100 mmol/L (98-107); GLUCOSE 184 mg/dL (75-110); LIPASE 101.5 U/L (23-300); POTASSIUM 4.5 mmol/L (3.6-5.0); SODIUM 128.7 mmol/L (137-145); TOTAL PROTEIN 4.1 g/dL (6.3-8.2)
[2017-05-21 21:04] LABS: BAND NEUTROPHILS % (MANUAL) 6 % (3-5); BASOPHILS % (MANUAL) 0 % (0-2); EOSINOPHILS % (MANUAL) 0 % (0-6); LYMPHOCYTES % (MANUAL) 17 % (13-45); TOTAL CELLS COUNTED 100; TOXIC VACUOLATION PRESENT
[2017-05-21 21:07] LABS: ACANTHOCYTES 2+; BURR CELLS SLIGHT; OVALOCYTES SLIGHT; POIKILOCYTOSIS 1+
[2017-05-21 21:11] LABS: ANION GAP 23 (5-19); ANISOCYTOSIS SLIGHT; ASPARTATE AMINO TRANSFERASE 1464 U/L (14-36); CARBON DIOXIDE 6 mmol/L (22-30)
== END 2017-05-21 21:15 | disposition short-term general hospital (02) ==
LOC: ER 13:25
PROC: 0BH17EZ Insertion of Endotracheal Airway into Trachea, Via Natural or Artificial Opening (ICD-10-PCS; principal; 2017-05-21)
PROC: 05HM33Z Insertion of Infusion Device into Right Internal Jugular Vein, Percutaneous Approach (ICD-10-PCS; 2017-05-21)
DX: A41.9 Sepsis, unspecified organism (principal); R65.20 Severe sepsis without septic shock; J18.9 Pneumonia, unspecified organism; T68.XXXA Hypothermia, initial encounter; I95.9 Hypotension, unspecified; R09.02 Hypoxemia; R41.82 Altered mental status, unspecified; E87.2 Acidosis; J44.9 Chronic obstructive pulmonary disease, unspecified; X58.XXXA Exposure to other specified factors, initial encounter; Z87.440 Personal history of urinary (tract) infections; Z88.6 Allergy status to analgesic agent; Z88.0 Allergy status to penicillin; Z88.2 Allergy status to sulfonamides; Z90.49 Acquired absence of other specified parts of digestive tract; Z98.84 Bariatric surgery status
CPT/HCPCS: 93005; 96376; 99291; 96361; 96375; 51702; 96365; 96366; 96367; 96368; 36415; 87040; 87086; 82962; 80307; 82803 ×2; 82550; 83690; 85025; 87088; 80053; 81001; 84484; 87186; 83605; 71010; 74177; 93010; 31500; 36556; C1751; J2250; J3490 ×4; J3010; J2060; J3475; J3480; J7060; J7030; J3370; J1956; J0692